=== PATIENT | female | born 1950 | race Caucasian/White ===

== ENCOUNTER 2025-01-02 11:19 | Day surgery (SDC) | payer MEDICARE ==
[2025-01-01 11:51] VITALS: BMI 29.1
[2025-01-02 12:08] VITALS: TEMP 98
[2025-01-02] MEDS: IV FLUID CONTINUATION 1,000 ML IV ONE (12:15)
[2025-01-02] MEDS: LACTATED RINGERS 1,000 ML IV SCH (12:15)
[2025-01-02] MEDS ORDERED: PROPOFOL 10 MG/ML 20 ML VIAL IV ONE (13:01)
--- NOTE | 2025-01-02 13:22 | P.PCN ---
Date of Procedure: 01/02/25 Procedure(s) Performed: BRIEF HISTORY: Patient is a 74-year-old pleasant white female scheduled for an elective colonoscopy as a part of screening for prior history of colon polyps. Her last colonoscopy was 7 years ago and was noted to have a tubular adenoma. PROCEDURE PERFORMED: Colonoscopy with snare polypectomy. PREOPERATIVE DIAGNOSIS: History of colon polyps. IV sedation per Anesthesia. PROCEDURE: After informed consent was obtained, the patient, was brought into the endoscopy unit. IV sedation was administered by Anesthesia under continuous monitoring. Digital rectal examination was normal. Initially the Olympus CF-160 flexible video colonoscope was then inserted in the rectum, gradually advanced into the cecum without any difficulty. Careful examination was performed as the scope was gradually being withdrawn. Ileocecal valve and the appendiceal orifice were visualized and appeared normal. Prep was excellent. Mucosa of the cecum, ascending colon, transverse colon, appeared normal. In the descending colon there was a 7 mm polyp removed by cold snare polypectomy. In the sigmoid colon there is a 5 mm polyp removed by cold snare polypectomy. Scattered left-sided diverticulosis seen. Rest of the descending colon, sigmoid colon, and rectum appeared normal. Retroflexion was performed in the rectum and no lesions were seen. The patient tolerated the procedure well. IMPRESSION: 7 mm descending colon polyp status post cold snare polypectomy 5 mm sigmoid colon polyp status post cold snare polypectomy Scattered sigmoid diverticulosis RECOMMENDATIONS: Findings of this examination were discussed with the patient as well as her family. She was advised to follow-up with the biopsy results. If the biopsy reveals adenoma she can have repeat colonoscopy in 5 years..
[2025-01-02 13:45] VITALS: BP 127/86; PULSE 80; RESP 16
== END 2025-01-02 14:02 | disposition home or self-care (01) ==
LOC: ORWHC2ENDO 11:19
PROVIDERS: ATTEND Internal Medicine Gastroenterology
DX: D12.4 Benign neoplasm of descending colon (principal); K63.5 Polyp of colon; K57.30 Diverticulosis of large intestine without perforation or abscess without bleeding; Z86.0101 Personal history of adenomatous and serrated colon polyps
CPT/HCPCS: 45385; J2704; 88305